=== PATIENT | female | born 1975 | race African-American/Black ===

== ENCOUNTER 2025-05-08 00:58 | Emergency (ER) | payer SELFPAY ==
[~2025-05-08] VITALS: Ht 162.6 cm; Wt 54.2 kg
[2025-05-08 01:07] VITALS: O2SAT 100
[2025-05-08 01:18] VITALS: BP 119/81; PULSE 92; RESP 18; TEMP 36.7; O2SAT 98
== END 2025-05-08 02:00 | disposition left against medical advice (07) ==
LOC: ER 00:58
DX: K08.89 Other specified disorders of teeth and supporting structures (principal)
CPT/HCPCS: 99281